=== PATIENT | male | born 1985 | race Caucasian/White ===

== ENCOUNTER → 2024-12-30 | Outpatient (CLI) | payer MEDICAID, SELFPAY ==
--- NOTE | 2024-12-30 17:07 | CT_ITS ---
PROCEDURE: SINUS/FACIAL BONE 12/31/2024 REASON FOR EXAM: ATYPICAL FACIAL PAIN TECHNIQUE: SINUS/FACIAL BONE Coronal and Sagittal reconstruction series were provided. One or more dose reduction techniques were used (e.g., Automated exposure control, adjustment of the mA and/or kV according to patient size, use of iterative reconstruction technique). RADIATION DOSE SUMMARY: CTDlvol: mGy DLP:mGycm COMPARISON: none FINDINGS: Clear sphenoid and frontal sinuses as well as the maxillary antra and ethmoidal air cells. Uncinate Processes: No deviation or bulla formation O-M UNIT: patent. Sphenoethmoidal recesses. Patent Fovea Ethmoidalis: Normal position. Fovea ethmoidalis and cribriform plate are not low lying Nasal Septum: bowed convex to the right side Turbinates: unremarkable Nasopharynx: no obvious abnormalities. Mastoid air cells and middle ear clefts: Unremarkable Facial Bones and mandible: Unremarkable. CT/Sinus/Facial Bone IMPRESSION: Bowed nasal septum convex to the right side. Otherwise, unremarkable study Reading Location[facility]
== END | disposition home or self-care (01) ==
LOC: CT 17:06
PROVIDERS: PCP Student in an Organized Health Care Education/Training Program; Referring Provider Otolaryngology; Visit Provider Otolaryngology
DX: G50.1 Atypical facial pain (principal)
CPT/HCPCS: 70486